=== PATIENT | male | born 1975 | race Caucasian/White ===

== ENCOUNTER 2021-10-05 17:32 | Emergency (ER) | payer OTHER ==
[2021-10-05] MEDS ORDERED: cefTRIAXone 500 MG in Lidocaine 1% 1 ML IM ONE (18:11)
[2021-10-05] MEDS ORDERED: Azithromycin 250 MG Tab PO STA (18:11)
[2021-10-05 19:59] LABS: C. TRACHOMATIS BY PCR NOT DETECTED; N. GONORRHOEAE BY PCR NOT DETECTED
== END 2021-10-05 18:29 | disposition home or self-care (01) ==
LOC: MW.ED 17:32
DX: Z11.3 Encounter for screening for infections with a predominantly sexual mode of transmission (principal); Z20.2 Contact with and (suspected) exposure to infections with a predominantly sexual mode of transmission
CPT/HCPCS: 81003; 87491; 87591; 96372; 99283; A9270; J0696